=== PATIENT | female | born 1990 | race African-American/Black ===

== ENCOUNTER 2017-02-09 04:48 | Emergency (ER) | payer SELFPAY ==
[2017-02-09] MEDS ORDERED: NO HOME MEDICATION XX (04:58)
== END 2017-02-09 06:00 ==
LOC: EDMED 04:48
DX: S01.81XA Laceration without foreign body of other part of head, initial encounter (principal); F10.129 Alcohol abuse with intoxication, unspecified; F17.200 Nicotine dependence, unspecified, uncomplicated; V49.40XA Driver injured in collision with unspecified motor vehicles in traffic accident, initial encounter; Y92.410 Unspecified street and highway as the place of occurrence of the external cause